=== PATIENT | male | born 1995 | race Caucasian/White ===

== ENCOUNTER 2021-09-14 03:10 | Emergency (ER) | payer BC, SELFPAY ==
[2021-09-14 03:14] VITALS: BP 149/101; PULSE 89; RESP 15; O2SAT 100
--- NOTE | 2021-09-14 03:23 | ED.GENADULT ---
HPI - General Adult General Chief complaint: Unspecified Stated complaint: BLOOD CIRCULATION GETTING CUT OFF IN HEAD Time Seen by Provider: 09/14/21 03:13 Source: patient Mode of arrival: ambulatory Limitations: no limitations History of Present Illness HPI narrative: 26-year-old male presenting to the emergency department for evaluation of sinus pressure. Patient is currently being treated with Augmentin for a suspected ear infection. Patient has been on Augmentin for the past 2 days. Patient states when he lays down flat that he does have increased pressure on both his ethmoid and maxillary sinuses. Patient states he was concerned that he was having a circulation issue to his head. Related Data Allergies Allergy/AdvReac Type Severity Reaction Status Date / Time No Known Allergies Allergy Verified 09/14/21 03:22 Review of Systems Review of Systems: CONSTITUTIONAL: Denies fever, chills, or sweats. EYES: Denies visual changes, redness, or discharge. ENT: sinus pressure and ear pain CARDIOVASCULAR: Denies chest pain, palpitations, or edema. RESPIRATORY: Denies cough or dyspnea. GASTROINTESTINAL: Denies abdominal pain, nausea, vomiting, or diarrhea. GENITOURINARY: Denies dysuria or hematuria. SKIN: Denies rash or itching. MUSCULOSKELETAL: Denies back pain, joint pain, or myalgia. NEUROLOGIC: Denies headache, numbness, or weakness. All systems reviewed & are unremarkable except as noted in HPI and below PMFSH Social History Social History Smoking status: Never smoker Alcohol intake: never Exam Narrative: APPEARANCE: Well appearing, no pain, no distress, well-nourished. HEAD: normocephalic, atraumatic. Sinus tenderness to palpation. EYES: PERRLA/EOMI, conjunctivae clear. NOSE: Normal no drainage EARS:TMS clear with good light reflex. Well appearing left TM. Cerumen impaction right TM THROAT: Pharynx clear, no exudate. NECK: Supple. No adenopathy, no masses. RESPIRATORY: Airway patent, respirations nonlabored. Clear to auscultation bilaterally, no rales, rhonchi, wheezing. CARDIOVASCULAR: Regular rate and rhythm without murmurs rubs or gallops. ABDOMINAL: Soft, nontender, nondistended, normal bowel sounds MUSCULOSKELETAL: Moves all extremities. Strength/ROM intact, No edema, No calf tenderness. NEURO: Alert. Cranial nerves II through XII intact. Good gait. Good coordination. Grossly normal neuro exam SKIN: Warm, dry. Normal Color PSYCHIATRIC: Appears anxious Course Course Emergency Course: On recheck patient's blood pressure was 120/89. Patient is currently on Augmentin and was told to continue this. Patient was also advised to try a decongestant to help with his sinus congestion symptoms. Patient has a normal neuro exam. No concern for any neurologic or circulatory abnormality. Vital Signs Vital signs: Vital Signs Pulse Rate 89 09/14/21 03:14 Respiratory Rate 15 09/14/21 03:14 Blood Pressure 149/101 H 09/14/21 03:14 Pulse Oximetry 100 09/14/21 03:14 Pulse Rate 75 09/14/21 03:56 Respiratory Rate 16 09/14/21 03:56 Blood Pressure 120/89 09/14/21 03:56 Pulse Oximetry 99 09/14/21 03:56 Medical Decision Making Vital Signs Vital Signs: Vital Signs Pulse Rate 89 09/14/21 03:14 Respiratory Rate 15 09/14/21 03:14 Blood Pressure 149/101 H 09/14/21 03:14 Pulse Oximetry 100 09/14/21 03:14 Pulse Rate 75 09/14/21 03:56 Respiratory Rate 16 09/14/21 03:56 Blood Pressure 120/89 09/14/21 03:56 Pulse Oximetry 99 09/14/21 03:56 Discharge Plan Discharge Clinical Impression: Sinus pressure Patient Disposition: Home, Self-Care Condition: Stable Instructions: Antibiotic Form, Sinusitis (ED) Additional Instructions: Continue to take the antibiotic as directed. Claritin as needed for sinus congestion. Have close follow-up with your primary care physician. If you have any worsening symptoms then please call or return to the emergency department
[2021-09-14 03:56] VITALS: BP 120/89; PULSE 75; RESP 16; O2SAT 99
== END 2021-09-14 04:01 | disposition home or self-care (01) ==
PROVIDERS: Emergency Provider Emergency Medicine
DX: J34.89 Other specified disorders of nose and nasal sinuses (principal)
CPT/HCPCS: 99281

== ENCOUNTER 2024-10-30 11:11 | Emergency (ER) | payer BC, SELFPAY ==
--- NOTE | ~2024-10-30 | XR_ITS ---
CHEST RADIOGRAPH, PA AND LATERAL CLINICAL HISTORY: cp . COMPARISON: None available TECHNIQUE: PA and lateral views of the chest. FINDINGS The cardiomediastinal silhouette is unremarkable. The lungs are clear. Visualized osseous structures and soft tissues are unremarkable. IMPRESSION: No focal infiltrate or effusion. Reviewed, dictated and finalized at location A.
--- NOTE | 2024-10-30 11:12 | ECG_ITS ---
Test Date: 2024-10-30 11:17:15 Measurements Intervals [place] Rate: 71 P: 71 SD: 156 QRS: 79 QRSD: 98 T: 70 QT: 356 QTc: 388 Interpretive Statements SINUS RHYTHM RSR' IN V1 OR V2, PROBABLY NORMAL VARIANT No previous ECG available for comparison Electronically Signed On 10-30-2024 11:47:19 CDT by Daren Rivera M.D.
--- OUTSIDE RECORDS SUMMARY | 2024-10-30 11:13 | XMS_ITS | Data Portability ---
Author Organization [facility] [employer], Main Office Address [address] [place] [address] Assessment No assessment recorded. Plan of Treatment Reminders Order Date Submit Date Provider Last Modified By Organization Details Last Modified Time Details Appointments None recorded. Lab magnesium, serum or plasma 2023 024 [email or web address] 2 [facility] (Lab), [address] [place], [address], 4 08:09:52 vitamin B12 + folate, serum or blood 2023 024 [email or web address] 2 [facility] (Lab), [address] [place], [address], 4 08:09:52 vitamin D, 25-hydroxy, total, serum 2023 024 [email or web address] 2 [facility] (Lab), [address] [place], [address], 4 08:09:52 CMP, serum or plasma 2023 024 [email or web address] 2 [facility] (Lab), [address] [place], [address], 4 08:09:51 CBC w/ auto diff 2023 024 [email or web address] 2 [facility] (Lab), [address] [place], [address], 4 08:09:51 lipid panel, serum 2023 024 [email or web address] 2 [facility] (Lab), [address] [place], [address], 4 08:09:51 glycohemogl obin, total, blood 2023 024 [email or web address] 2 [facility] (Lab), [address] [place], [address], 4 08:09:51 TSH, serum or plasma 2023 024 [email or web address] 2 [facility] (Lab), [address] [place], [address], 4 08:09:51 T4, free, serum 2023 024 [email or web address] 2 [facility] (Lab), [address] [place], [address], 4 08:09:51 CK (creatine kinase), total, serum 2023 024 [email or web address] 2 [facility] (Lab), [address] [place], [address], 4 08:09:52 Referral neurologist referral 2022 023 Not available 3 13:57:11 Procedures None recorded. Surgeries None recorded. Imaging None recorded. Medication Orders None recorded. Patient TargetsNo targets recorded. Patient InstructionsNo instructions recorded. Reason for Referral Neurologist Referral for Landy hinojosa Referring Physician: Shakila Browning, Family Medicine, Encounter Date: 12/08/2022 Problems Name Problem SNOMED Code Status Onset Date Resolution Date Notes Provider Name and Address Organization Details Recorded Time Elevated blood-pres sure reading without diagnosis of hypertensi on 089742808 Active 2022 Shakila Browning MD [address] [facility], [facility] [address], [place], [address], [employer] 3 11:44:56 Headache 92592344 Active 2022 chiropract or manipulait ng cervical spine helped get rid of headache ISIDRO Keita [address] [facility], [place], [address], [facility] 4 17:23:38 Tension-ty pe headache 155383752 Active 2022 Shakila Browning MD [address] [facility], [facility] [address], [place], [address], [facility] 3 11:29:00 Adult health examinatio n Active 2023 ISIDRO Keita [address] [facility], [facility] [address], [place], [address], [employer] 4 16:12:41 At increased risk of nutritiona l deficit 328174923 Active 2023 ISIDRO Keita [address] [facility], [facility] [address], [place], [address], [employer] 4 16:14:20 Problem Notes None recorded. Medical Equipment None Reported. Allergies No known drug allergies Medications Name Sig Start Date Stop Date Status Note LastModified by Organization Details LastModified Time Debrox 6.5 % ear drops INSTILL 5 DROPS INTO AFFECTED EAR(S) BY OTIC ROUTE 2 TIMES PER DAY 12/23 completed Not Available Not Available Not Available gabapentin 100 mg capsule TAKE 1 CAPSULE BY MOUTH AT BEDTIME 03/27 completed Not Available Not Available Not Available methylpredn isolone 4 mg tablets in a dose pack FOLLOW PACKAGE DIRECTION S 12/23 completed Not Available Not Available Not Available fluticasone propionate 50 mcg/actuati on nasal spray,suspe nsion SHAKE LIQUID AND USE 1 TO 2 SPRAYS IN EACH NOSTRIL TWICE DAILY 03/27 completed Not Available Not Available Not Available amoxicillin 875 mg-potassiu m clavulanate 125 mg tablet TAKE 1 TABLET BY MOUTH TWICE DAILY FOR 10 DAYS 12/23 completed Not Available Not Available Not Available Vitals Date Recorded Body mass index (BMI) Body height Oxygen saturation Oxygen saturation in Arterial blood by Pulse oximetry Heart rate Body temperature Body weight Systolic And Diastolic Provider Name and Address Organization Details Last Updated DateTime 2 23.3 kg/m2 172.72 cm 97 % 97 % 74 /min 96.5 [degF] 93520.6 3 g 112/76 mm[Hg] Not Available [facility] 3 00:59:08 Date Recorded Body height Body mass index (BMI) Body weight Body temperature Heart rate Oxygen saturation Oxygen saturation in Arterial blood by Pulse oximetry Systolic And Diastolic Provider Name and Address Organization Details Last Updated DateTime 3 172.72 cm 24 kg/m2 46297.5 9 g 98.1 [degF] 109 /min 97 % 97 % 142/100 mm[Hg] NETTE Johnson [facility] [employer] [facility] 3 11:33:41 Date Recorded Body mass index (BMI) Body height Oxygen saturation Oxygen saturation in Arterial blood by Pulse oximetry Heart rate Body temperature Body weight Systolic And Diastolic Provider Name and Address Organization Details Last Updated DateTime 2 23.6 kg/m2 172.72 cm 97 % 97 % 96 /min 97.6 [degF] 88661.8 2 g 124/76 mm[Hg] Not Available [facility] 3 00:59:08 Date Recorded Body height Body mass index (BMI) Body weight Body temperature Heart rate Oxygen saturation Oxygen saturation in Arterial blood by Pulse oximetry Respiratory rate Systolic And Diastolic Provider Name and Address Organization Details Last Updated DateTime 4 172.72 cm 23.3 kg/m2 98936.6 3 g 98.9 [degF] 82 /min 98 % 98 % 16 /min 138/86 mm[Hg] Daphne Zhu RN [facility] [employer] [facility] 4 16:02:28 Date Recorded Body height Body mass index (BMI) Body weight Body temperature Heart rate Oxygen saturation Oxygen saturation in Arterial blood by Pulse oximetry Systolic And Diastolic Provider Name and Address Organization Details Last Updated DateTime 3 172.72 cm 23.6 kg/m2 36070.8 2 g 97.9 [degF] 115 /min 98 % 98 % 124/76 mm[Hg] Whitney Reveles MA [place] - [facility] 11:08:36 Social History Question Answer Notes LastModified by Organizat ion Details LastModified Time Tobacco Smoking Status Never Smoker Not Available [employer] 08/07/2022 00:58:22 What Is Your Level Of Caffeine Consumption? Occasional Teas [id number] Information not available 08/07/2022 What Type Of Diet Are You Following? REGULAR [id number] Information not available 08/07/2022 Sex: Unknown Functional Status Question Answer Note LastModified by Organizat ion Details LastModified Time Do you use any illicit or recreational drugs? No [id number] Information not available 08/07/2022 What is your level of alcohol consumption? None [id number] Information not available 08/07/2022 What is your exercise level? Occasional [id number] Information not available 08/07/2022 Mental Status None recorded. Family History Relationship Description Onset Age of this Age Resolved Age Notes LastModified by Organization Details LastModified Time Mother Vertigo [id number] Not available 08/07/2022 00:58:53 Medical History No medical history recorded. Past Encounters Encounter ID Performer Location Encounter Start Date Encounter Closed Date Diagnosis/Indication Diagnosis SNOMED-CT Code Diagnosis ICD10 Code Diagnosis Note [id number] Shakila Browning MD [facility] [address] [place] [address] 09/26/2021 00:00:00 09/26/2021 19:27:14 [id number] Shakila Browning MD [facility] [address] [place] [address] 10/02/2021 00:00:00 10/02/2021 21:23:26 [id number] Shakila Browning MD [facility] [address] [place] [address] 12/23/2021 00:00:00 12/23/2021 18:42:06 [id number] Shakila Browning MD [facility] [place] [address] [facility] [place] [address] 12/08/2022 11:17:41 12/08/2022 12:18:55 Elevated blood-pressure reading without diagnosis of hypertension 645694800 R03.0 Watch salt in diet. Monitor BP away from here. If continues to run high will need a f/u appt. Headache 25665331 R51.9 acupressur e to area. [id number] Shakila Browning MD [facility] [place] [address] [facility] [place] [address] 03/27/2023 10:59:47 03/27/2023 11:33:06 Tension-type headache 370040686 G44.209 Continue massages as needed Headache 77636468 R51.9 acupressur e to area. [id number] Joe Roca MD [facility] [place] [address] [place] [address] [place] [address] 01/11/2024 15:49:46 01/11/2024 16:21:35 Adult health examination 155214570 Z00.00 At [facility] risk of nutritional deficit 692816919 Z91.89 Health Concerns Section Related Observation LastModified by Organization Detai ls LastModified Time None Recorded Concern Status LastModified by Organization Details LastModified Time None Recorded Advance Directives Directive None Recorded Payers Encounter Date Sequence Insurance Name Policy Number Policy Banuelos Covered Member ID Banuelos Member ID Guarantor Name 12/08/2022 1 [facility] (MEDICAID HMO) [id number] Gagan Gil [id number] Gagan Gil 03/27/2023 1 [facility] (MEDICAID HMO) [id number] Gagan Gil [id number] Gagan Gil 01/11/2024 1 [facility] (MEDICAID REPLACEMENT - HMO) [id number] Gagan Gil [id number] Gagan Gil Notes Date Note Type Note Provider Name and Address Organization Details Recorded Time 12/08/2022 text/html Here today c/o migraine at the base of the skull and turns to a headache. It is postural too. Has discomfort on the base of neck. It does affect his vision. Sometimes has waves in vision.Has headaches once a week. Takes nothing for it tries to fix posture and adjusting neck it does help. No tingling or numbness down arm. no photophobia. Takes nothing for the headache. Shakila Browning MD [address] [address], [place], [address], [employer] 12/08/2022 13:14:42 03/27/2023 text/html Had migraines an d had neck tightness with headaches did a massage therapy and this did help. It helped. Pt having no complaints today. Here for a check up Shakila Browning MD [address] [facility] [address], [place], [address], [employer] 03/28/2023 13:29:49 01/11/2024 text/html saw massage therapist , massage emmanuelley which helped his headache tremendously ISIDRO Keita [address] [facility] [address], [place], [address], [employer] 01/24/2024 17:24:13
[2024-10-30 11:15] VITALS: BP 142/97; PULSE 79; RESP 12; TEMP 36.9; O2SAT 100
[2024-10-30 11:18] VITALS: O2SAT 100
[2024-10-30 11:27] LABS: Basophils Percent Auto 0.5 % (0.2-1.2); Eosinophils Absolute Auto 0.1 K/mm3 (0-0.3); Hematocrit 46.5 % (42.0-52.0); Hemoglobin 15.4 g/dL (14.0-18.0); Immature Granulocyte Absolute 0.03 K/mm3 (0.00-0.031); Immature Granulocyte Percent A 0.4 % (0-0.5); Lymphocytes Absolute Auto 1.93 K/mm3 (0.9-3.2); Lymphocytes Percent Auto 25.1 % (18.3-44.2); Mean Corpuscular HGB Conc 33.1 g/dl (32-36); Mean Corpuscular Hemoglobin 28.1 pg (26-34); Mean Corpuscular Volume 84.9 fl (80-100); Mean Platelet Volume 10.4 fl (7.4-10.4); Monocytes Absolute Auto 0.7 K/mm3 (0.1-0.6); Neutrophils Absolute Auto 4.9 K/mm3 (1.3-6.7); Platelet Count Result 229 k/mm3 (150-375); Red Blood Count 5.48 M/mm3 (4.6-6.20); Red Cell Distribution Width 12.8 % (11.5-14.5); White Blood Count 7.7 K/mm3 (4.5-10.0)
[2024-10-30] MEDS: ASPIRIN 81 MG CHEWABLE TABLET 324 MG PO (11:30)
[2024-10-30 11:32] LABS: Alanine Aminotransferase 34 U/L (6-50); Albumin Level 5.1 g/dL (3.5-5.1); Alkaline Phosphatase 64 U/L (38-126); Anion Gap 11 mmol/L (4-12); Aspartate Amino Transferase 43 U/L (17-59); Bilirubin,Total 0.6 mg/dL (0.2-1.3); Blood Urea Nitrogen 17 mg/dL (9-20); Calcium 9.5 mg/dL (8.4-10.2); Carbon Dioxide 26 mmol/L (22-30); Chloride 104 mmol/L (98-107); Estimated Glomerular Filt Rate > 60; Glucose 90 mg/dL (65-110); Lipase 115 U/L (23-300); Potassium 4.2 mmol/L (3.4-5.0); Sodium 141 mmol/L (137-145)
[2024-10-30 11:35] LABS: INR 0.9; Prothrombin Time 13.1 Seconds (11.1-14.7)
[2024-10-30 11:44] LABS: Troponin I < 0.012 ng/mL (0.000-0.034)
--- NOTE | 2024-10-30 11:49 | ED_ITS ---
HPI - General Adult General Chief complaint: Chest Pain Stated complaint: chest pain Time Seen by Provider: 10/30/24 11:12 History of Present Illness HPI narrative: 29-year-old male presents to the emergency department for evaluation of intermittent left-sided chest pain. Patient describes the chest pain as sharp and it has been ongoing for the last few days. Patient reports last week he did have upper respiratory infection including head pressure with cough and congestion. Denies any prior cardiac history. Patient states the pain is not worsened with exertion. Patient describes the pain as sharp and intermittent. Patient does not feel the pain is worsened with deep inspiration. Related Data Allergies Allergy/AdvReac Type Severity Reaction Status Date / Time No Known Allergies Allergy Verified 11/06/22 12:57 Review of Systems 2 Review of Systems: All systems reviewed & are unremarkable except as noted in HPI and below PMFSH Social History Social History (Updated 11/06/22 @ 12:58 by Palak Harmon [facility]) Smoking status: Never smoker Alcohol intake: never Lack of Transportation: No Lack of Food: Never True Current Housing: I Have Housing Concerned About Future Housing: No Difficulty Paying Gas/Electric Bills: No Difficulty Paying for Meds: No Currently Unemployed: No Education: High School Diploma/GED Difficulty w/ Childcare or Family Care: No Exam 2 Narrative: APPEARANCE: Well appearing, no pain, no distress, well-nourished. HEAD: normocephalic, atraumatic. EYES: PERRLA/EOMI, conjunctivae clear. NOSE: Normal no drainage EARS:TMS clear with good light reflex. THROAT: Pharynx clear, no exudate. NECK: Supple. No adenopathy, no masses. RESPIRATORY: Airway patent, respirations nonlabored. Clear to auscultation bilaterally, no rales, rhonchi, wheezing. CARDIOVASCULAR: Regular rate and rhythm without murmurs rubs or gallops. ABDOMINAL: Soft, nontender, nondistended, normal bowel sounds MUSCULOSKELETAL: Moves all extremities. Strength/ROM intact, No edema, No calf tenderness. Some reproducible chest wall tenderness to palpation at the left sternal border NEURO: Alert. Cranial nerves II through XII intact. Good gait. Good coordination SKIN: Warm, dry. Normal Color Course Vital Signs Vital signs: Vital Signs Temperature 98.4 F 10/30/24 11:15 Pulse Rate 79 10/30/24 11:15 Respiratory Rate 12 10/30/24 11:15 Blood Pressure 142/97 H 10/30/24 11:15 Pulse Oximetry 100 10/30/24 11:15 Oxygen Delivery Room Air 10/30/24 11:15 Temperature 98.4 F 10/30/24 11:15 Pulse Rate 64 10/30/24 13:19 Respiratory Rate 23 H 10/30/24 13:19 Blood Pressure 131/78 10/30/24 13:19 Pulse Oximetry 100 10/30/24 13:19 Oxygen Delivery Room Air 10/30/24 11:18 Medical Decision Making MDM Narrative Medical decision making narrative: 29-year-old male present to the emergency department for evaluation for intermittent chest pain. Patient was treated with IV Toradol and states his symptoms have resolved. Patient is currently afebrile with no leukocytosis and hemoglobin of 15.4. Patient's D-dimer was not elevated. Patient has no acute abnormalities on his CMP patient has a negative troponin. Patient was negative for influenza RSV and for COVID. Chest x-ray shows no acute cardiopulmonary abnormality. EKG showed normal sinus rhythm no evidence of acute STEMI. Patient states he was also having some anxiety for some of these symptoms but this has also resolved. Patient and family are updated the results of the workup with a were encouraged close follow-up with the patient's primary care physician Differential Diagnosis Differential Diagnosis: COVID, RSV, influenza, pneumonia, pneumothorax, pulmonary embolism and ACS Vital Signs Vital Signs: Vital Signs Temperature 98.4 F 10/30/24 11:15 Pulse Rate 79 10/30/24 11:15 Respiratory Rate 12 10/30/24 11:15 Blood Pressure 142/97 H 10/30/24 11:15 Pulse Oximetry 100 10/30/24 11:15 Oxygen Delivery Room Air 10/30/24 11:15 Temperature 98.4 F 10/30/24 11:15 Pulse Rate 64 10/30/24 13:19 Respiratory Rate 23 H 10/30/24 13:19 Blood Pressure 131/78 10/30/24 13:19 Pulse Oximetry 100 10/30/24 13:19 Oxygen Delivery Room Air 10/30/24 11:18 Lab Data Lab results reviewed: Yes I reviewed the patient's lab results. 10/30/24 11:18 10/30/24 11:18 Labs: Lab Results 10/30/24 10/30/24 Range/Units 11:18 12:03 WBC 7.7 (4.5-10.0) K/mm3 RBC 5.48 (4.6-6.20) M/mm3 Hgb 15.4 (14.0-18.0) g/dL Hct 46.5 (42.0-52.0) % MCV 84.9 (80-100) fl MCH 28.1 (26-34) pg MCHC 33.1 (32-36) g/dl RDW 12.8 (11.5-14.5) % Plt Count 229 (150-375) k/mm3 MPV 10.4 (7.4-10.4) fl Immature Gran % (Auto) 0.4 (0-0.5) % Neut % (Auto) 64.0 (45.5-73.1) % Lymph % (Auto) 25.1 (18.3-44.2) % Glascock % (Auto) 9.0 H (2.6-8.5) % Eos % (Auto) 1.0 (0-4.4) % Baso % (Auto) 0.5 (0.2-1.2) % Lymph # (Auto) 1.93 (0.9-3.2) K/mm3 Glascock # (Auto) 0.7 H (0.1-0.6) K/mm3 Eos # (Auto) 0.1 (0-0.3) K/mm3 Baso # (Auto) 0.0 (0.0-0.1) K/mm3 Abs Immat Gran (auto) 0.03 (0.00-0.031) K/mm3 Absolute Neuts (auto) 4.9 (1.3-6.7) K/mm3 Absolute Nucleated RBC 0.000 (0.0-0.012) K/mm3 Nucleated RBC % 0.0 (0.0-0.2) % PT 13.1 (11.1-14.7) Seconds INR 0.9 APTT 26.0 (22.3-36.8) Seconds D-Dimer < 0.27 (<0.48) ug/mL Sodium 141 (137-145) mmol/L Potassium 4.2 (3.4-5.0) mmol/L Chloride 104 (98-107) mmol/L Carbon Dioxide 26 (22-30) mmol/L Anion Gap 11 (4-12) mmol/L BUN 17 (9-20) mg/dL Creatinine 1.03 (0.7-1.3) mg/dL Estim Creat Clear Calc Not Reportable Estimated GFR > 60 (59 - ) Glucose 90 (65-110) mg/dL Calcium 9.5 (8.4-10.2) mg/dL Total Bilirubin 0.6 (0.2-1.3) mg/dL AST 43 (17-59) U/L ALT 34 (6-50) U/L Alkaline Phosphatase 64 (38-126) U/L Troponin I < 0.012 (0.000-0.034) ng/mL Total Protein 9.0 H (6.3-8.2) g/dL Albumin 5.1 (3.5-5.1) g/dL Lipase 115 (23-300) U/L Influenza A (RT-PCR) Negative (Negative) Influenza B (RT-PCR) Negative (Negative) RSV (RT-PCR) Negative (Negative) SARS-CoV-2 RNA (RT-PCR) Negative (Negative) Imaging Data Radiologist's impression: Impressions Chest X-Ray 10/30/24 11:48 IMPRESSION: No focal infiltrate or effusion. Discharge Plan Discharge Clinical Impression: Atypical chest pain Patient Disposition: Home Condition: Stable Instructions: Antibiotic Form, Pleurisy (ED), Chest Wall Pain (ED) Additional Instructions: Ibuprofen scheduled for chest pain. Have close follow-up with your primary care physician for additional outpatient cardiac testing. If you have any worsening symptoms then please call or return to the emergency department. Patient Language: Faroese Follow-up/Referrals: PHYSICIAN,RESEARCH MANAGEMENT ASSOCIATE [Primary Care Provider] - Quality HEART score for chest pain patients History: slightly suspicious ECG: normal Age: < or = to 45 years Risk factors: no risk factors known Troponin: < or = to 1x normal limit Heart score: 0
[2024-10-30] MEDS: KETOROLAC 15 MG/ML VIAL (*BKC) IV PUSH (12:09)
[2024-10-30 12:11] LABS: D Dimer < 0.27 ug/mL (<0.48)
[2024-10-30 12:25] VITALS: BP 117/87; PULSE 69; RESP 13; O2SAT 97
[2024-10-30 12:44] LABS: Influenza A QL RT-PCR Negative (Negative); Influenza B QL RT-PCR Negative (Negative); RSV RNA, RT-PCR Negative (Negative); SARS-CoV-2 RNA PCR Negative (Negative)
[2024-10-30 13:19] VITALS: BP 131/78; PULSE 64; RESP 23; O2SAT 100
== END 2024-10-30 13:54 | disposition home or self-care (01) ==
PROVIDERS: Emergency Medicine; Emergency Provider Emergency Medicine
DX: R07.89 Other chest pain (principal); Z20.822 Contact with and (suspected) exposure to COVID-19
CPT/HCPCS: 36415; 71046; 80053; 83690; 84484; 85025; 85380; 85610; 85730; 87637; 93005; 96374; 99284; A9270; J1885